=== PATIENT | female | born 1995 | race Two or more races ===

== ENCOUNTER 2024-02-26 17:54 | Inpatient (IN) | payer OTHER ==
[~2024-02-26] VITALS: Ht 152.4 cm; Wt 97.0 kg
--- NOTE | 2024-02-26 18:43 | ED.PDOC ---
GI ASSESSMENT HPI Comments 28y F who presents to the ED via EMS for chief complaint of abdominal pain. Pt states she has been having epigastric pain since the past 1 week. Pt states the pain is burning in nature, constant, radiating to the RUQ, rating the pain 6/10, with associated exacerbating factor after eating and no relieving factors. Pt has associated nausea but otherwise denies any other symptoms. Pt states she has previously been diagnosed with gallstones but states she has not been to get consult for follow up. Pt otherwise denies any other symptoms at this time. Chief Complaint: Abdominal Pain Time Seen by MD: 18:39 Reviewed Notes: Nurses Notes, Retanner Notes Allergies: Coded Allergies: NO KNOWN ALLERGIES (Unverified , 02/26/24) Information Source: Patient Mode of Arrival: EMS Brought in by: EMS Timing: Days Duration: Since onset Prehospital treatment: None Quality: Aching, Burning Vomitus: None Stool: Normal Severity: Moderate Recent: None Recent Hx of: None Pain Location: Epigastric, RUQ Modifying Factors: Food Associated sign and symptoms: Nausea, Abdominal Pain Past Medical History PAST MEDICAL HISTORY: Denies Surgical History: BTL [employer] History: Unknown Family History Family History: Unknown Social History Smoker: Non-Smoker Alcohol: Denies ETOH Use Drugs: Denies Drug Use Lives In: Home Constitutional: denies: chills, diaphoresis, fatigue, fever, malaise, sweats, weakness, others EENTM: denies: blurred vision, double vision, ear bleeding, ear discharge, ear drainage, ear pain, ear ringing, eye pain, eye redness, hearing loss, mouth pain, mouth swelling, nasal discharge, nose bleeding, nose congestion, nose pain, photophobia, tearing, throat pain, throat swelling, voice changes, others Respiratory: denies: cough, hemoptysis, orthopnea, SOB at rest, shortness of breath, SOB with excertion, stridor, wheezing, others Cardiovascular: denies: chest pain, dizzy spells, diaphoresis, Dyspnea on exertion, edema, irregular heart beat, left arm pain, lightheadedness, palpitations, PND, syncope, others Gastrointestinal: reports: abdominal pain, nausea; denies: abdomen distended, blood streaked bowels, constipated, diarrhea, dysphagia, difficulty swallowing, hematemesis, melena, poor appetite, poor fluid intake, rectal bleeding, rectal pain, vomiting, others Genitourinary: denies: abnormal vagina bleeding, burning, dyspareunia, dysuria, flank pain, frequency, hematuria, incontinence, pain, , vagina discharge, urgency, others Neurological: denies: dizziness, fainting, headache, left sided numbness, left sided weakness, numbness, paresthesia, pre-existing deficit, right sided numbness, right sided weakness, seizure, speech problems, tingling, tremors, weakness, others Musculoskeletal: denies: back pain, gout, joint pain, joint swelling, muscle pain, muscle stiffness, neck pain, others Integumetry: denies: bruises, change in color, change in hair/nails, dryness, laceration, lesions, lumps, rash, wounds, others Allergic/Immunocompromised: denies: Difficulty Healing, Frequent Infections, Hives, Itching, others Hematologic/Lymphatic: denies: anemia, blood clots, easy bleeding, easy bruising, swollen glands, others Endocrine: denies: excessive hunger, excessive sweating, excessive thirst, excessive urination, flushing, intolerance to cold, intolerance to heat, unexplained weight gain, unexplained weight loss, others Psychiatric: denies: anxiety, bipolar disorder, depression, hopeless, panic disorder, schizophrenia, sleepless, suicidal, others All Other Systems: Reviewed and Negative Physical Exam General Appearance: Moderate Distress HEENT: Normal ENT Inspection, Pharynx Normal, TMs Normal Neck: Full Range of Motion, Non-Tender, Normal, Normal Inspection Respiratory: Chest Non-Tender, Lungs Clear, No Accessory Muscle Use, No Respiratory Distress, Normal Breath Sounds Cardiovascular: No Edema, No JVD, No Murmur, No Gallop, Normal Peripheral Pulses, Regular Rate/Rhythm Breast Exam: Deferred Gastrointestinal: Epigastric, No Organomegaly, No Pulsatile Mass, Normal Bowel Sounds, Soft, Tenderness Genitalia: Deferred Pelvic: Deferred Rectal: Deferred Extremities: No calf tenderness, Normal capillary refill, Normal inspection, Normal range of motion, Non-tender, No pedal edema Musculoskeletal : Apperance: Normal Neurologic: Alert, abrasive grader helper II-XII nml as Tested, No Motor Deficits, Normal Affect, Normal Mood, No Sensory Deficits Cerebellar Function: Normal Reflexes: Normal Skin: Dry, Normal Color, Warm Lymphatic: No Adenopathy Was a procedure done? Was a procedure done?: No GI differential Dx Differential Diagnosis: Cholangitis, Cholecystitis, Constipation, Diverticular disease, Gastritis/PUD, Gastroenteritis Other Differential Diagnosis gallstones, biliary colic X-Ray, Labs, Meds, VS Vital Signs Date Time Temp Pulse Resp B/P (MAP) Pulse Ox O2 Delivery O2 Flow Rate FiO2 02/26/24 18:55 98.9 64 18 111/71 (84) 97 Lab Test 02/26/24 18:27 Range/Units White Blood Count 8.9 4.4-10.8 10^3/uL Red Blood Count 4.93 4.0-5.20 10^6/uL Hemoglobin 16.0 12.2-16.2 g/dL Hematocrit 47.3 H 36.0-46.0 % Mean Corpuscular Volume 96.0 80.0-100.0 fL Mean Corpuscular Hemoglobin 32.4 H 28.0-32.0 pg Mean Corpuscular Hemoglobin Concent 33.7 32.0-36.0 g/dL Red Cell Distribution Width 13.1 11.8-14.3 % Platelet Count 120 L 140-450 10^3/uL Mean Platelet Volume 9.4 6.9-10.8 fL Neutrophils (%) (Auto) 75.4 37.0-80.0 % Lymphocytes (%) (Auto) 18.4 10.0-50.0 % Monocytes (%) (Auto) 4.8 0.0-12.0 % Eosinophils (%) (Auto) 0.9 0.0-7.0 % Basophils (%) (Auto) 0.5 0.0-2.0 % Neutrophils # (Auto) 6.7 1.6-8.6 10 ^3/uL Lymphocytes # (Auto) 1.6 0.4-5.4 10 ^3/uL Monocytes # (Auto) 0.4 0-1.3 10 ^3/uL Eosinophils # (Auto) 0.1 0-0.8 10 ^3/uL Basophils # (Auto) 0 0-0.2 10 ^3/uL Nucleated Red Blood Cells 0.1 % Sodium Level 140 136-145 mmol/L Potassium Level 3.4 L 3.5-5.1 mmol/L Chloride Level 110 H 98-107 mmol/L Carbon Dioxide Level 22 20-31 mmol/L Anion Gap 8 5-15 Blood Urea Nitrogen 8 L 9-23 mg/dL Creatinine 0.87 0.550-1.02 mg/dL Glomerular Filtration Rate Calc 93 >90 mL/min BUN/Creatinine Ratio 9.2 L 10.0-20.0 Serum Glucose 81 74-106 mg/dL Calcium Level 9.2 8.7-10.4 mg/dL Total Bilirubin 1.9 H 0.2-1.0 mg/dL Aspartate Amino Transferase (AST) 170 H 13-40 U/L Alanine Aminotransferase (ALT) 479 H 7-40 U/L Alkaline Phosphatase 243 H 46-116 U/L Total Protein 7.4 5.7-8.2 g/dL Albumin 4.2 3.2-4.8 g/dL Lipase 1383 H 12-53 U/L The patient's CBC and chemistry panel are within normal limits The patient's liver enzymes are elevated The lipase is 1383 The patient had an ultrasound at the other facility. The results are there. The patient was being admitted with a diagnosis of gallstone pancreatitis The patient understands and agrees with the management We will continue to manage the patient's pain with morphine and Zofran Images Reviewed?: Images reviewed and evaluated by me Time of 1ST Reevaluation: 19:10 Reevaluation 1ST: Unchanged Patient Education/Counseling: Diagnosis, Treatment, Prognosis Family Education/Counseling: No Family Present Additional Information - I reviewed the following notes from patient's past medical encounters: - The following tests were ordered, and results were reviewed by me: (Labs, X- Ray, EKG): cbc, cmp, lipase, - Additional information was gathered from interviewing the following independent Historian: (Family, Other Providers, EMT): ems - I reviewed and agreed with the following test results read by other provider: (X-ray, CT, US): none - I discussed treatments and results with medical personnel and: (consultants, family): none Departure 1 Departure Time of Disposition: 20:19 Impression: Primary Impression: Intractable abdominal pain Additional Impression: Gallstone pancreatitis Disposition: 09 ADMITTED INPATIENT Admit to: [facility] Condition: Fair Critical Care Note Critical Care Time?: No Stability Stability form required: Yes Unstable for transfer: Telemetry monitoring (Telemetry monitoring required), ED Physician Assesment (Clinical assesment) Heart Score Heart Score: Heart Score Response (Comments) Value History N/A 0 EKG N/A 0 Age N/A 0 Risk Factors N/A 0 Troponin N/A 0 Total 0 I personally scribed for EDGARDO MASON MD ([email or web address]) on 02/26/24 at 18:43. Electronically submitted by Hardeep Garcia ([email or web address]). EDGARDO MASON MD Feb 26, 2024 18:43
[2024-02-26 18:49] LABS: Basophils # (auto) 0 10 ^3/uL (0-0.2); Basophils % (auto) 0.5 % (0.0-2.0); Eosinophils # (auto) 0.1 10 ^3/uL (0-0.8); Eosinophils % (auto) 0.9 % (0.0-7.0); Hematocrit 47.3 % (36.0-46.0); Lymphocytes # (auto) 1.6 10 ^3/uL (0.4-5.4); Lymphocytes % (auto) 18.4 % (10.0-50.0); Mean Corpuscular Hemoglobin 32.4 pg (28.0-32.0); Mean Corpuscular Hgb Conc. 33.7 g/dL (32.0-36.0); Monocytes # (auto) 0.4 10 ^3/uL (0-1.3); Monocytes % (auto) 4.8 % (0.0-12.0); Neutrophils # (auto) 6.7 10 ^3/uL (1.6-8.6); Neutrophils % (auto) 75.4 % (37.0-80.0); Nucleated Red Blood Cells % 0.1 %; Platelet Count (auto) 120 10^3/uL (140-450); Red Blood Cells 4.93 10^6/uL (4.0-5.20); Red Cell Distribution Width 13.1 % (11.8-14.3); White Blood Cell 8.9 10^3/uL (4.4-10.8)
[2024-02-26 19:08] LABS: Albumin 4.2 g/dL (3.2-4.8); Anion Gap 8 (5-15); BUN/Creatinine Ratio 9.2 (10.0-20.0); Calcium 9.2 mg/dL (8.7-10.4); Carbon Dioxide 22 mmol/L (20-31); Glucose 81 mg/dL (74-106); Sodium 140 mmol/L (136-145)
[2024-02-26 19:09] LABS: Total Protein 7.4 g/dL (5.7-8.2)
[2024-02-26 19:14] LABS: Alanine Aminotransferase 479 U/L (7-40); Alkaline Phosphatase 243 U/L (46-116); Aspartate Aminotransferase 170 U/L (13-40); Bilirubin, Total 1.9 mg/dL (0.2-1.0); Blood Urea Nitrogen 8 mg/dL (9-23); Chloride 110 mmol/L (98-107); Potassium 3.4 mmol/L (3.5-5.1)
[2024-02-26 19:23] LABS: Lipase 1383 U/L (12-53)
[2024-02-26] MEDS: LACTATED RINGER'S 1,000 ML IV SCH (23:30)
[2024-02-26] MEDS ORDERED: POTASSIUM CHLORIDE 40 MEQ, LIDOCAINE 1% (LOCAL ANESTH.) 4 ML in SODIUM CHL 0.9% 250 ML IV ONE (23:30)
[2024-02-26] MEDS ORDERED: ONDANSETRON HCL 4 MG/2 ML VIAL IV PRN (23:30)
--- NOTE | 2024-02-26 23:50 | DVHHPRES ---
History of Present Illness Resident Creating Document: CATINA REYNOSO RESDIENT History of Present Illness This is a 28-year-old female with past medical history of gas stone, present to the hospital with epigastric abdominal pain since 7 days. Per patient, intermitted sharp epigastric pain since 1 week which radiates to the back, worsened by taking food which last for a couple of hours and 6/10 in intensity. The patient was admitted due to same symptoms around 1 month back, on imaging found to have gallstone. Abdominal pain is associated with nausea and vomiting. Patient denies fever, chest pain, shortness of breath, and any changes in bladder and bowel habits. PMHx: Gallstone PSHx: Bilateral tubal ligation Social history: Patient lives with has been at home, denies smoking, alcohol or any other drug use Allergic history: No known Allergic Review of Systems Review of Systems General: patient denies fever, fatigue, weaknes, sweating, any recent changes in appetite and weight HEENT: No headaches, visiual changes, hearing loss, tinnitus, nasal congestion and discharge, and sore throat. Cardiovascular: Denies chest pain, palpitations, dyspnea on exertion, orthopnea, or claudication. Respiratory: No cough, and wheezing. Gastrointestinal: Reports nausea, vomiting, and abdominal pain Genitourinary: No dysuria, hematuria, discharge, frequency, urgency, nocturia, incontinence, and urinary retention. Endocrine: No heat or cold intolerance, polydipsia, polyuria, and polyphagia. Neurological: No dizziness, extremity weakness and numbness, tremors, gait disturbance, seizures, and memory impairment. Psychiatric: Denies depression, anxiety,or insomnia. Musculoskeletal: Denies neck pain, stiffness and swelling, back pain, muscle weakness, joint pain, stiffness, swelling, or limited range of motion. Skin: No rashes, itching, skin lesion, changes in hair, nail, skin texture and breast. Hematologic/Lymphatic: Denies easy bruising, bleeding tendencies, or lymph node enlargement. Allergies: Coded Allergies: NO KNOWN ALLERGIES (Unverified , 02/26/24) Medications Current Medications Medications Dose Ordered Sig/Yoni Route Start Time Stop Time Status Last Admin Dose Admin Piperacillin Sod/ Tazobactam Sod 100 ml @ 25 mls/hr Q8HR@0000,0800,1600 IV 02/27/24 00:00 Ondansetron HCl 4 mg Q4HPRN PRN IV 02/26/24 23:30 Pantoprazole Sodium 40 mg DAILY IV 02/27/24 10:00 Lactated Ringer's 1,000 ml @ 125 mls/hr Q8H IV 02/26/24 23:30 Potassium Chloride 100 ml @ 50 mls/hr Q2H IV 02/27/24 00:00 02/27/24 03:59 Exam Vital Signs Vital Signs Date Time Temp Pulse Resp B/P (MAP) Pulse Ox O2 Delivery O2 Flow Rate FiO2 02/26/24 21:09 98.9 63 16 116/68 (84) 96 98.9 02/26/24 21:07 Room Air* 0 21 Exam General Appearance: Alert, Oriented X3, Cooperative, No acute distress HEENT: Atraumatic, PERRLA, EOMI, Mucous membrane moist/pink Respiratory: Clear to auscultation, Normal air movement Cardiovascular: Regular rate, Normal S1, Normal S2, No murmurs, no chest wall tenderness Abdominal: Mild epigastric tenderness Extremities: No clubbing, No cyanosis, No edema, Normal pulses, No tenderness/swelling Skin: No rashes, No breakdown, No significant lesion Neuro: Normal gait, Normal speech, Strength at 5/5 X4 ext, Normal tone, Sensation intact, Cranial nerves 3-12 NL, Reflexes 2+ Psych/Mental Status: Mental status NL, Mood NL Labs/Xrays Labs Test 02/26/24 18:27 Range/Units White Blood Count 8.9 4.4-10.8 10^3/uL Red Blood Count 4.93 4.0-5.20 10^6/uL Hemoglobin 16.0 12.2-16.2 g/dL Hematocrit 47.3 H 36.0-46.0 % Mean Corpuscular Volume 96.0 80.0-100.0 fL Mean Corpuscular Hemoglobin 32.4 H 28.0-32.0 pg Mean Corpuscular Hemoglobin Concent 33.7 32.0-36.0 g/dL Red Cell Distribution Width 13.1 11.8-14.3 % Platelet Count 120 L 140-450 10^3/uL Mean Platelet Volume 9.4 6.9-10.8 fL Neutrophils (%) (Auto) 75.4 37.0-80.0 % Lymphocytes (%) (Auto) 18.4 10.0-50.0 % Monocytes (%) (Auto) 4.8 0.0-12.0 % Eosinophils (%) (Auto) 0.9 0.0-7.0 % Basophils (%) (Auto) 0.5 0.0-2.0 % Neutrophils # (Auto) 6.7 1.6-8.6 10 ^3/uL Lymphocytes # (Auto) 1.6 0.4-5.4 10 ^3/uL Monocytes # (Auto) 0.4 0-1.3 10 ^3/uL Eosinophils # (Auto) 0.1 0-0.8 10 ^3/uL Basophils # (Auto) 0 0-0.2 10 ^3/uL Nucleated Red Blood Cells 0.1 % Sodium Level 140 136-145 mmol/L Potassium Level 3.4 L 3.5-5.1 mmol/L Chloride Level 110 H 98-107 mmol/L Carbon Dioxide Level 22 20-31 mmol/L Anion Gap 8 5-15 Blood Urea Nitrogen 8 L 9-23 mg/dL Creatinine 0.87 0.550-1.02 mg/dL Glomerular Filtration Rate Calc 93 >90 mL/min BUN/Creatinine Ratio 9.2 L 10.0-20.0 Serum Glucose 81 74-106 mg/dL Calcium Level 9.2 8.7-10.4 mg/dL Total Bilirubin 1.9 H 0.2-1.0 mg/dL Aspartate Amino Transferase (AST) 170 H 13-40 U/L Alanine Aminotransferase (ALT) 479 H 7-40 U/L Alkaline Phosphatase 243 H 46-116 U/L Total Protein 7.4 5.7-8.2 g/dL Albumin 4.2 3.2-4.8 g/dL Lipase 1383 H 12-53 U/L Assessment/Plan Assessment/Plan Acute pancreatitis, likely due to gallstone/alcohol Cholelithiasis CT scan shows, acute pancreatitis, cholelithiasis, and mild prominence of common bile duct Ultrasound shows, mildly dilated common bile duct and cholelithiasis, but no choledocholithiasis visualized Lipase is raised at 1383 Consulted surgery NPO IV ringer lactate Zosyn Morphine for the pain Zofran p.r.n. Dyslipidemia LDL is raised at 110 Transaminitis Hypokalemia, repleted Hyperchloremia, monitoring Hypomagnesemia, repleted Thrombocytopenia, monitoring Alcohol use disorder Patient consulted for alcohol cessation for more than 17 minutes DIET: NPO DVT PROPHYLAXIS: SCDs GI PROPHYLAXIS:: Protonix CODE STATUS: Goal of care discussed for more than 18 minutes, full code DISPOSITION: Med surge Patient's status discussed with the patient. Case discussed with Dr. Lara Plan discussed with: Patient, Other (RN) My Orders Orders - CATINA REYNOSO RESDIENT Procedure Category Date Status Time Admit ADMIT 02/26/24 Transmitted 23:16 Stat Ekg For Chest JOE 02/26/24 In Process Pain 23:16 Notify Md Of Changes JOE 02/26/24 In Process From Base 23:16 Piperacillin-Tazob PHA 02/27/24 In Process 3.375gm (Zosyn 3.375g 00:00 Ondansetron Hcl PHA 02/26/24 In Process (Zofran) 23:30 Potassium Chloride PHA 02/26/24 In Process (Potassium Chloride). 23:30 Pantoprazole PHA 02/27/24 In Process (Protonix) 10:00 Lactated Ringer's PHA 02/26/24 In Process 23:30 Magnesium LAB 02/26/24 Logged 23:17 Blood Alcohol LAB 02/26/24 Logged 23:17 Lipid Panel LAB 02/26/24 Logged 23:17 LIVER US 02/26/24 Taken 23:17 Lactic Acid W/ Reflex LAB 02/26/24 Logged Order 23:17 Urinalysis LAB 02/26/24 Logged 23:17 Drug Screen LAB 02/26/24 Logged 23:17 Prothrombin Time W/ LAB 02/26/24 Logged INR 23:17 * Surgical Consult CONS 02/26/24 Transmitted 1 View Decubitus XY 02/26/24 Logged Chest Xray 23:17 Sequential JOE 02/26/24 In Process Compression Device 23:17 Full Code JOE 02/26/24 In Process 23:17 Code Status CODE 02/26/24 Transmitted 23:17 Npo Except Ice Chips ORDERS 02/26/24 Transmitted 23:31 Potassium Chl PHA 02/27/24 In Process 20meq/100ml 00:00 Ct Ab Pel Wo Con-No CT 02/26/24 Logged Oral Or Iv 23:17 Date of Service: Feb 26, 2024 Billing Provider: SHAMEKA LARA MD Common Visit Codes: [id number] INP/OBS CARE (HIGH) CATINA REYNOSO Feb 26, 2024 23:50 SHAMEKA LARA MD Feb 27, 2024 08:58
[2024-02-27] VITALS (9 sets, daily range): BP systolic 92–111; BP diastolic 53–63; PULSE 59–81; RESP 15–20; TEMP 97.5–98.7; O2SAT 96–99
[2024-02-27] MEDS: PIPERACILLIN-TAZOB 3.375GM 100 ML IV SCH
--- NOTE | 2024-02-27 00:17 | DVH ---
ABDOMINAL ULTRASOUND CLINICAL HISTORY: Pancreatitis TECHNIQUE: Multiple grayscale and color Doppler ultrasound images were obtained of the abdomen. WID: COMPARISON: None FINDINGS: Liver and Biliary System: Homogeneous echotexture, normal size measuring 13.3 cm. No focal hepatic observations. No intrahepatic bile duct dilatation. The common duct measures 0.7 cm at the sukhwinder h epatis. The gallbladder is normal caliber and contains cholelithiasis. No gallbladder wall thicken ing. Sonographic Cote's sign is negative.. Pancreas: Not well seen due to overlying bowel gas Kidneys: The right kidney is 9.1 cm . No hydronephrosis, increased echogenicity, shadowing stone, o r focal lesion. IMPRESSION: 1. Mildly dilated common bile duct. No choledocholithiasis in the visualized portions of the duct. I f there is clinical concern for biliary obstruction, MRCP could be pursued for further evaluation. 2. Cholelithiasis.
[2024-02-27 00:23] LABS: INR 1.04 (0.9-1.15)
[2024-02-27 00:24] LABS: Blood Alcohol 5.6 mg/dL (<10); Magnesium 1.9 mg/dL (1.6-2.6)
--- NOTE | 2024-02-27 00:43 | DVH ---
CHEST RADIOGRAPH Indication: Pancratitis Technique: Single frontal view of the chest was obtained COMPARISON: None FINDINGS: Lines and Tubes: None Lungs: Clear Pleura: No effusion. No pneumothorax. Cardiomediastinal contours: Unremarkable Bones: Unremarkable IMPRESSION: 1. No acute disease.
[2024-02-27] MEDS: PANTOPRAZOLE 40 MG/10 ML VIAL INJ IV ONE (00:49)
--- NOTE | 2024-02-27 00:56 | DVH ---
CLINICAL HISTORY: pancreatitis TECHNIQUE: CT of the abdomen and pelvis was performed without intravenous contrast. This exam was per formed according to our departmental dose optimization program. Up-to-date CT equipment and radiation dose reduction techniques are utilized as appropriate. CTDI: 18.75 DLP: 1089 WID: COMPARISON: None FINDINGS: Lower Thorax: Linear bibasilar scarring or atelectasis. Normal-sized heart. Liver and Biliary system: Grossly unremarkable liver. The gallbladder is normal caliber with cholelit hiasis. There is no intrahepatic bile duct dilatation mild prominence of the common bile duct measuri ng 9 mm on series 601, image 47 Spleen: Unremarkable. Adrenal Glands and Kidneys: Unremarkable. Pancreas and Retroperitoneum: Mild peripancreatic soft tissue swelling . There is no retroperitoneal lymphadenopathy. Mild fluid layers in the [id number]-[id number]-right retroperitoneum Aorta and Major Vessels: Unremarkable. Bowel, Mesentery and Peritoneal space: The small and large bowel loops are normal in caliber. Normal appendix. No free air or fluid collection. Pelvis: There is a 9.1 x 7.2 cm dermoid cyst in the right adnexa on series 2, image 75. There are bi lateral tubal ligation clips. No pelvic lymphadenopathy. Uterus is grossly unremarkable. Urinary blad felipa is mildly distended. Abdominal wall and Osseous Structures: Small fat containing umbilical hernia. No destructive osseous lesion IMPRESSION: 1. Acute pancreatitis. 2. Cholelithiasis. 3. Mild prominence of the common bile duct. If there is clinical concern for biliary obstruction, MR CP could be pursued for evaluation. 4. There is a 9.1 x 7.2 cm right ovarian dermoid cyst
[2024-02-27] MEDS: POTASSIUM CHL 20MEQ/100ML 100 ML IV SCH ×2 (01:00→17:15)
[2024-02-27 06:35] LABS: Basophils # (auto) 0 10 ^3/uL (0-0.2); Basophils % (auto) 0.4 % (0.0-2.0); Eosinophils # (auto) 0.2 10 ^3/uL (0-0.8); Eosinophils % (auto) 2.8 % (0.0-7.0); Hematocrit 40.9 % (36.0-46.0); Hemoglobin 14.1 g/dL (12.2-16.2); Lymphocytes # (auto) 2.1 10 ^3/uL (0.4-5.4); Lymphocytes % (auto) 29.4 % (10.0-50.0); Mean Corpuscular Hemoglobin 32.6 pg (28.0-32.0); Mean Corpuscular Hgb Conc. 34.4 g/dL (32.0-36.0); Mean Corpuscular Volume 94.9 fL (80.0-100.0); Monocytes # (auto) 0.6 10 ^3/uL (0-1.3); Monocytes % (auto) 7.8 % (0.0-12.0); Neutrophils # (auto) 4.3 10 ^3/uL (1.6-8.6); Neutrophils % (auto) 59.6 % (37.0-80.0); Platelet Count (auto) 101 10^3/uL (140-450); Red Blood Cells 4.31 10^6/uL (4.0-5.20); Red Cell Distribution Width 12.9 % (11.8-14.3); White Blood Cell 7.2 10^3/uL (4.4-10.8)
[2024-02-27 06:58] LABS: Albumin 3.8 g/dL (3.2-4.8); Anion Gap 12 (5-15); BUN/Creatinine Ratio 11.5 (10.0-20.0); Blood Urea Nitrogen 9 mg/dL (9-23); Calcium 8.9 mg/dL (8.7-10.4); Carbon Dioxide 20 mmol/L (20-31); Sodium 141 mmol/L (136-145); Total Protein 6.5 g/dL (5.7-8.2)
[2024-02-27 07:03] LABS: Alanine Aminotransferase 352 U/L (7-40); Alkaline Phosphatase 204 U/L (46-116); Aspartate Aminotransferase 92 U/L (13-40); Bilirubin, Total 1.6 mg/dL (0.2-1.0); Chloride 109 mmol/L (98-107); Glucose 72 mg/dL (74-106); Potassium 3.4 mmol/L (3.5-5.1)
[2024-02-27] MEDS: PANTOPRAZOLE 40 MG/10 ML VIAL INJ IV SCH (09:07)
--- NOTE | 2024-02-27 09:13 | DVH ---
[id number] MRI MRCP MRI Attending Name: BULLOCK, IMRAN Sherita COMPARISON: CT scan dated [id number], ultrasound dated 02/26/2024 INDICATION: probably choledocolithiasis TECHNIQUE: MRCP was performed without the use of intravenous contrast using a MRI imaging system. Three-dimensional MRCP was performed using maximum intensity projection reconstruction on an [facility] ent workstation under concurrent supervision. FINDINGS: Visualized lower thorax: Limited imaging of the thorax demonstrates no suspicious pleural or parenchy mal disease. Liver: Normal in morphology and signal intensity. Gallbladder: Multiple gallstones are seen in gallbladder lumen measuring from 3 mm to 14 mm. Biliary system: Mildly dilated CBD measuring 7.8 mm in caliber. No choledocholithiasis. No intrahepat ic ductal dilatation noted. Spleen: Normal in morphology and signal intensity. Pancreas: Edematous pancreas with moderate peripancreatic edema. Trace free fluid is seen adjacent t o spleen and gastric fundus. Adrenal glands: Normal in morphology and signal intensity. Kidneys: The kidneys are symmetric in size and appearance. No hydronephrosis. Urinary tract: The included ureters, as visualized, are normal in course and caliber. GI tract: The included portions of the bowel are within normal limits. Lymph nodes: No enlarged lymph nodes. Peritoneum: No ascites. Musculoskeletal: The bone marrow signal intensity is within normal limits. Other: Partially seen large complex right adnexal lesion corresponding to mature teratoma seen in the prior CT scan. IMPRESSION: 1. Acute pancreatitis with no evidence of pseudocyst formation. No pancreatic ductal dilatation. 2. The CBD is mildly dilated measuring 7.8 mm in caliber but without choledocholithiasis or distal ob structing process. 3. Cholelithiasis with no evidence of cholecystitis.
--- NOTE | 2024-02-27 11:56 | DVHINCON2 ---
Date of service: Feb 27, 2024 Family History: Patient reports no known family medical history. Allergies: Coded Allergies: NO KNOWN ALLERGIES (Unverified , 02/26/24) Current Medications Current Medications Medications (Trade) Dose Ordered Sig/Yoni Route PRN Reason Start Time Stop Time Status Last Admin Piperacillin Sod/ Tazobactam Sod 100 ml @ 25 mls/hr Q8HR@0000,0800,1600 IV 02/27/24 00:00 02/27/24 08:58 Ondansetron HCl (Zofran) 4 mg Q4HPRN PRN IV NAUSEA / VOMITING 02/26/24 23:30 Pantoprazole Sodium (Protonix) 40 mg DAILY IV 02/27/24 10:00 02/27/24 09:07 Lactated Ringer's 1,000 ml @ 125 mls/hr Q8H IV 02/26/24 23:30 02/27/24 08:58 Potassium Chloride 100 ml @ 50 mls/hr Q2H IV 02/27/24 00:00 02/27/24 03:59 DC 02/27/24 02:00 Vital Signs Vital Signs Date Time Temp Pulse Resp B/P (MAP) Pulse Ox O2 Delivery O2 Flow Rate FiO2 02/27/24 09:00 98.0 81 20 107/63 (78) 97 98.0 02/27/24 08:00 Room Air* 0 21 Labs/Diagnostic Data Labs Test 02/27/24 06:17 02/26/24 23:57 02/26/24 18:27 Range/Units White Blood Count 7.2 4.4-10.8 10^3/uL Red Blood Count 4.31 4.0-5.20 10^6/uL Hemoglobin 14.1 12.2-16.2 g/dL Hematocrit 40.9 # 36.0-46.0 % Mean Corpuscular Volume 94.9 80.0-100.0 fL Mean Corpuscular Hemoglobin 32.6 H 28.0-32.0 pg Mean Corpuscular Hemoglobin Concent 34.4 32.0-36.0 g/dL Red Cell Distribution Width 12.9 11.8-14.3 % Platelet Count 101 L 140-450 10^3/uL Mean Platelet Volume 8.9 6.9-10.8 fL Neutrophils (%) (Auto) 59.6 37.0-80.0 % Lymphocytes (%) (Auto) 29.4 10.0-50.0 % Monocytes (%) (Auto) 7.8 0.0-12.0 % Eosinophils (%) (Auto) 2.8 0.0-7.0 % Basophils (%) (Auto) 0.4 0.0-2.0 % Neutrophils # (Auto) 4.3 1.6-8.6 10 ^3/uL Lymphocytes # (Auto) 2.1 0.4-5.4 10 ^3/uL Monocytes # (Auto) 0.6 0-1.3 10 ^3/uL Eosinophils # (Auto) 0.2 0-0.8 10 ^3/uL Basophils # (Auto) 0 0-0.2 10 ^3/uL Nucleated Red Blood Cells 0.0 % Sodium Level 141 136-145 mmol/L Potassium Level 3.4 L 3.5-5.1 mmol/L Chloride Level 109 H 98-107 mmol/L Carbon Dioxide Level 20 20-31 mmol/L Anion Gap 12 5-15 Blood Urea Nitrogen 9 9-23 mg/dL Creatinine 0.78 0.550-1.02 mg/dL Glomerular Filtration Rate Calc 106 >90 mL/min BUN/Creatinine Ratio 11.5 10.0-20.0 Serum Glucose 72 L 74-106 mg/dL Calcium Level 8.9 8.7-10.4 mg/dL Total Bilirubin 1.6 H 0.2-1.0 mg/dL Aspartate Amino Transferase (AST) 92 H 13-40 U/L Alanine Aminotransferase (ALT) 352 H 7-40 U/L Alkaline Phosphatase 204 H 46-116 U/L Total Protein 6.5 5.7-8.2 g/dL Albumin 3.8 3.2-4.8 g/dL Prothrombin Time 11.0 9.3-11.8 sec Prothrombin Time INR 1.04 0.9-1.15 Lactic Acid Level 1.0 0.4-2.0 mmol/L Magnesium Level 1.9 1.6-2.6 mg/dL Triglycerides Level 94 < 150 mg/dL Cholesterol Level 162 < 200 mg/dL LDL Cholesterol 110 H < 100 mg/dL HDL Cholesterol 41 40-59 mg/dL Plasma/Serum Blood Alcohol 5.6 <10 mg/dL Lipase 1383 H 12-53 U/L Assessment PATIENT HAS GALLSTONE PANCREATITIS, MRCP SHOWS NO EVIDENCE OF CHOLEDOCHOLITHIASIS,. ABDOMEN TENDER IN MED EPIGASTRIUM, SHE NEEDS TO REMAIN NPO TILL DEFERVESCENCE OF HER PANCREATITIS CONFIRMED BY NORMALIZATION OF AMYLASE AND LIPASE, THEN SHE CAN RESUME PO INTAKE, BE DISCHARGED AND RETURN TOP SEE ME IN THE OFFICE IN ABOUT TWO TO THREE WEEKS,AT THAT TIME WILL REPEAT CT SCAN AND IF NO FURTHER PANCREATIIC INFLAMMATION WILL SCHEDULE CHOLECYSTECTOMY ALL THIS WAS EXPLAINED TO PATIENT AND HER AT BEDSIDE Plan discussed with: Patient, Spouse EJ ACEVEDO MD Feb 27, 2024 11:56
--- NOTE | 2024-02-27 12:30 | DVHINCON2 ---
Date of service: Feb 27, 2024 Reason for Consultation Ovarian neoplasm (Teratoma) History of Present Illness HPI 28-year-old female two para one SAB one last menstrual period sometime in 01/2024 (unsure). Patient was admitted with acute abdominal pain, nausea or vomiting. No fever or diarrhea. Found to have acute gallstone pancreatitis without choledocholithiasis. CT scan shows an incidental right ovarian neoplasm 9 x 7 cm suggestive of a teratoma (dermoid cyst). Of note, the patient had bilateral tubal ligation approximately seven months ago and was informed at that time that she had a large ovarian cyst in her right ovary. The patient has been asymptomatic from this "cyst". She denies any pain any abnormal periods, and no pain with intercourse. There is no family history of ovarian cancer. Past Medical History Cardiac: No pertinent Hx Pulmonary: No pertinent Hx Central Nervous System: No pertinent Hx GI: Other (Gallstones, pancreatitis) Hemotology/Oncology: No pertinent Hx Hepatobiliary: No pertinent Hx Psychiatric: No pertinent Hx Musculoskeletal: No pertinent Hx Rheumotologic: No pertinent Hx Infectious Disease: No peritnent Hx ENT: No pertinent Hx Renal/: No pertinent Hx Endocrine: No pertinent Hx Dermatology: No pertinent Hx Past Surgical History: Tubal ligation Family History: No pertinent Hx Patient Family History: Patient reports no known family medical history. Smoker: No Hx (Negative) Alocohol: None Drugs: None Lives with: Alone Domestic Violence: Neg Review of Systems Constitutional: No symptom reported Ears, Nose, & Throat: No symptom reported Eyes: No symptom reported Pulmonary/Respiratory: No symptom reported Cardiovascular: No symptom reported Gastrointestinal: Nausea, Vomiting, Abdominal Pain Genitourinary: No symptom reported Musculoskeletal: No symptom reported Skin: No symptom reported Psychiatric: No symptom reported Endocrine: No symptom reported Hemotologic/Lymphatic: No symptom reported H&P Exam Vital Signs Vital Signs Date Time Temp Pulse Resp B/P (MAP) Pulse Ox O2 Delivery O2 Flow Rate FiO2 02/27/24 09:00 98.0 81 20 107/63 (78) 97 98.0 02/27/24 08:00 Room Air* 0 21 General Appeara: Well developed, Normal Appearance, Obese Head Exam: Normal inspection Eye Exam: bilateral eye PERRL Abdominal Exam: Normal bowel sounds, Soft, No hepatospenomegaly, No masses, Other (Tender in epigastrium) Rectal Exam: Deferred Pelvic Exam: Not done Labs/Xrays Labs Test 02/27/24 06:17 02/26/24 23:57 Range/Units White Blood Count 7.2 4.4-10.8 10^3/uL Red Blood Count 4.31 4.0-5.20 10^6/uL Hemoglobin 14.1 12.2-16.2 g/dL Hematocrit 40.9 # 36.0-46.0 % Mean Corpuscular Volume 94.9 80.0-100.0 fL Mean Corpuscular Hemoglobin 32.6 H 28.0-32.0 pg Mean Corpuscular Hemoglobin Concent 34.4 32.0-36.0 g/dL Red Cell Distribution Width 12.9 11.8-14.3 % Platelet Count 101 L 140-450 10^3/uL Mean Platelet Volume 8.9 6.9-10.8 fL Neutrophils (%) (Auto) 59.6 37.0-80.0 % Lymphocytes (%) (Auto) 29.4 10.0-50.0 % Monocytes (%) (Auto) 7.8 0.0-12.0 % Eosinophils (%) (Auto) 2.8 0.0-7.0 % Basophils (%) (Auto) 0.4 0.0-2.0 % Neutrophils # (Auto) 4.3 1.6-8.6 10 ^3/uL Lymphocytes # (Auto) 2.1 0.4-5.4 10 ^3/uL Monocytes # (Auto) 0.6 0-1.3 10 ^3/uL Eosinophils # (Auto) 0.2 0-0.8 10 ^3/uL Basophils # (Auto) 0 0-0.2 10 ^3/uL Nucleated Red Blood Cells 0.0 % Sodium Level 141 136-145 mmol/L Potassium Level 3.4 L 3.5-5.1 mmol/L Chloride Level 109 H 98-107 mmol/L Carbon Dioxide Level 20 20-31 mmol/L Anion Gap 12 5-15 Blood Urea Nitrogen 9 9-23 mg/dL Creatinine 0.78 0.550-1.02 mg/dL Glomerular Filtration Rate Calc 106 >90 mL/min BUN/Creatinine Ratio 11.5 10.0-20.0 Serum Glucose 72 L 74-106 mg/dL Calcium Level 8.9 8.7-10.4 mg/dL Total Bilirubin 1.6 H 0.2-1.0 mg/dL Aspartate Amino Transferase (AST) 92 H 13-40 U/L Alanine Aminotransferase (ALT) 352 H 7-40 U/L Alkaline Phosphatase 204 H 46-116 U/L Total Protein 6.5 5.7-8.2 g/dL Albumin 3.8 3.2-4.8 g/dL Prothrombin Time 11.0 9.3-11.8 sec Prothrombin Time INR 1.04 0.9-1.15 Lactic Acid Level 1.0 0.4-2.0 mmol/L Magnesium Level 1.9 1.6-2.6 mg/dL Triglycerides Level 94 < 150 mg/dL Cholesterol Level 162 < 200 mg/dL LDL Cholesterol 110 H < 100 mg/dL HDL Cholesterol 41 40-59 mg/dL Plasma/Serum Blood Alcohol 5.6 <10 mg/dL Assessment/Plan Admitting Diagnosis: 1. Acute gallstone pancreatitis 2. Inicidental Rt Ovarian neoplasm 9x7 cm, likey teratoma (dermoid) Plan Per general surgeon consultation, patient will be managed conservatively until pancreatitis resolves. She will then be scheduled for outpatient cholecystectomy. I have informed the patient that I also would like to follow up with her outpatient to schedule a laparoscopic right ovarian cystectomy versus right salpingo-oophorectomy. There are no acute land surveyor manager intervention indicated at this time. Thank you for allowing me to participate in the care this patient, land surveyor manager will sign off Plan discussed with: Patient Date of Service: Feb 27, 2024 Billing Provider: YADI MARIA DO Common Visit Codes: CONSULT ONLY Consultation Codes: [id number] CONSULT <45MIN YADI MARIA DO Feb 27, 2024 12:30
--- NOTE | 2024-02-27 15:08 | DVHPNRES ---
Progress Note Date Seen: Feb 27, 2024 Resident Creating Document: ROBIN HAHN RESIDENT Has the PT tested + for MRSA If YES, has PT been informed?: No Medical Necessity Reason Pt with a Central, PICC or Fol: No Subjective Review of Systems A 28-year-old female with past medical history of cholelithiasis, present to the hospital with epigastric abdominal pain since 7 days. Per patient, intermitted sharp epigastric pain since 1 week which radiates to the back, worsened by taking food which last for a couple of hours and 6/10 in intensity. The patient was admitted due to same symptoms around 1 month back, on imaging found to have gallstone. Abdominal pain is associated with nausea and vomiting. Patient denies fever, chest pain, shortness of breath, and any changes in bladder and bowel habits. PMHx: Gallstone PSHx: Bilateral tubal ligation Social history: Patient lives with has been at home, denies smoking, alcohol or any other drug use Allergic history: No known Allergic Objective vital signs Vital Sign Date Time Temp Pulse Resp B/P (MAP) Pulse Ox O2 Delivery O2 Flow Rate FiO2 02/27/24 09:00 98.0 81 20 107/63 (78) 97 98.0 02/27/24 08:00 Room Air* 0 21 Total Intake and Output 02/26/24 02/26/24 02/27/24 15:00 23:00 07:00 Intake Total 350 ml Output Total 0 ml Balance 350 ml medications Current Medications Medications Dose Ordered Sig/Yoni Route Start Time Stop Time Status Last Admin Dose Admin Piperacillin Sod/ Tazobactam Sod 100 ml @ 25 mls/hr Q8HR@0000,0800,1600 IV 02/27/24 00:00 02/27/24 08:58 25 MLS/HR Ondansetron HCl 4 mg Q4HPRN PRN IV 02/26/24 23:30 Pantoprazole Sodium 40 mg DAILY IV 02/27/24 10:00 02/27/24 09:07 40 MG Lactated Ringer's 1,000 ml @ 125 mls/hr Q8H IV 02/26/24 23:30 02/27/24 14:36 125 MLS/HR Examination General Appearance: Alert, Oriented X3, Cooperative, No acute distress HEENT: Atraumatic, PERRLA, EOMI, Mucous membrane moist/pink Respiratory: Clear to auscultation, Normal air movement Cardiovascular: Regular rate, Normal S1, Normal S2, No murmurs, no chest wall tenderness Abdominal: Mild epigastric tenderness Extremities: No clubbing, No cyanosis, No edema, Normal pulses, No tenderness/swelling Skin: No rashes, No breakdown, No significant lesion Neuro: Normal gait, Normal speech, Strength at 5/5 X4 ext, Normal tone, Sensation intact, Cranial nerves 3-12 NL, Reflexes 2+ Psych/Mental Status: Mental status NL, Mood NL laboratory and microbiology Laboratory Tests 02/27/24 06:17 Test 02/27/24 06:17 Range/Units Serum Glucose 72 L 74-106 mg/dL Problem List/Assessment/Plan Problem List/Assessment/Plan Acute pancreatitis, likely due to gallstone/alcohol Cholelithiasis CT scan shows, acute pancreatitis, cholelithiasis, and mild prominence of common bile duct Ultrasound shows, mildly dilated common bile duct and cholelithiasis, but no choledocholithiasis visualized MRCP negative to choledocholithiasis Lipase is raised at 1383 Consulted surgery: no need of emergent surgery, elective cholecystectomy Clear liquid diet: advance diet IV ringer lactate Zosyn Morphine for the pain Zofran p.r.n. Dyslipidemia LDL is raised at 110 Transaminitis Hypokalemia, repleted Hyperchloremia, monitoring Hypomagnesemia, repleted Thrombocytopenia, monitoring Alcohol use disorder Patient consulted for alcohol cessation for more than 17 minutes Ovarian cyst Per Dr Chandni sears outpatient DIET: NPO DVT PROPHYLAXIS: SCDs GI PROPHYLAXIS:: Protonix CODE STATUS: Goal of care discussed for more than 18 minutes, full code DISPOSITION: Med surge Patient's status discussed with the patient. Case discussed with Dr. Morales Plan discussed with: Patient, Other (rn) My Orders My Orders Orders - ROBIN HAHN Procedure Category Date Status Time Mrcp Mri MRI 02/27/24 Resulted 07:18 * Gi Dvh Wheel Borer CONS 02/27/24 Transmitted 07:18 Acute Hepatitis Panel LAB 02/27/24 In Process 07:18 Date of Service: Feb 27, 2024 Billing Provider: CRISTIAN MORALES MD Common Visit Codes: [id number] INP/OBS CARE(HIGH) ROBIN HAHN RESIDENT Feb 27, 2024 15:08 CRISTIAN MORALES MD Feb 27, 2024 15:37
[2024-02-27] MEDS ORDERED: ACETAMINOPHEN 325 MG TAB PO PRN (15:15)
--- NOTE | 2024-02-27 15:39 | DVHCONRES ---
Date Seen: Feb 27, 2024 Resident Creating Document: GARDENIA HOLLOWAY RESIDENT Referring Physician Reason for Consultation Acute pancreatitis History of Present Illness 28-year-old female patient with past medical history of type 2 obesity, gallstones who presented to the emergency department with a chief complaint of sudden onset of severe epigastric pain that began 7 days ago. Per patient the pain was described as sharp epigastric pain since 1 week ago which radiates to the back worsened by taking food, particularly fatty food, which last for a couple of hours and then resolves. 6/10 intensity. Patient reports having similar episodes in the past) 1 month ago) ultrasound showed gallstones. Patient was examined at bedside, she reports feeling better and previous s ymptoms) abdominal pain nausea and vomiting, loss of appetite ) resolved. Patient denies fever, chills or recent illness. There is no prior history of pancreatitis or significant alcohol consumption. The patient recalls occasional episodes of biliary colic in the past but did not seek medical attention. On physical examination the abdomen is soft with mild epigastric tenderness but no guarding, no rebound. Cote sign is negative. There is no jaundice or palpable masses. Laboratory findings include elevated lipase 1383 that went down until 395 (today) we will continue monitoring lipase tomorrow in the morning., white blood cell count remained within normal limits. Mildly elevated AST and ALT suggesting possible biliary obstruction, imaging with ultrasound showed mildly dilated common bile duct, no choledocholithiasis in the visualized portion of the duct. MRCP showed acute pancreatitis with no evidence of pseudocyst formation, no pancreatic ductal dilatation. The CBD is mildly dilated measuring 7.8 mm) less than 10) in caliber wet without choledocholithiasis or distal obstructing process. Cholelithiasis without evidence of cholecystitis. Patient has a scheduled appointment on [facility], patient was recommended to follow up with GI in the outpatient setting. Surgical intervention will be done in the outpatient per MD surgeon at [facility]. Past Medical History Gallstones. Morbid obesity Family History: Patient reports no known family medical history. Allergies: Coded Allergies: NO KNOWN ALLERGIES (Unverified , 02/26/24) Current Medications Current Medications Medications (Trade) Dose Ordered Sig/Yoni Route PRN Reason Start Time Stop Time Status Last Admin Piperacillin Sod/ Tazobactam Sod 100 ml @ 25 mls/hr Q8HR@0000,0800,1600 IV 02/27/24 00:00 02/27/24 08:58 Ondansetron HCl (Zofran) 4 mg Q4HPRN PRN IV NAUSEA / VOMITING 02/26/24 23:30 Pantoprazole Sodium (Protonix) 40 mg DAILY IV 02/27/24 10:00 02/27/24 09:07 Lactated Ringer's 1,000 ml @ 125 mls/hr Q8H IV 02/26/24 23:30 02/27/24 14:36 Potassium Chloride 100 ml @ 50 mls/hr Q2H IV 02/27/24 00:00 02/27/24 03:59 DC 02/27/24 02:00 Review of Systems Constitutional: No: Fever, Chills, Sweats, Weakness, Malaise, Other Eyes: No: Pain, Vision change, Conjunctivae inflammation, Eyelid inflammation, Other, Redness ENT: No: Ear pain, Ear discharge, Nose pain, Nose discharge, Nose congestion, Mouth pain, Mouth swelling, Throat pain, Throat swelling, Other Respiratory: No Wheezing, Hemoptysis, Pleuritic Pain, Sputum, Wheezing, Other Cardiovascular: No: Chest Pain, Palpitations, Orthopnea, Paroxysmal Noc. Dyspnea, Edema, Lt Headedness, Other Gastrointestinal: No: Nausea, Vomiting, Abdominal Pain, Diarrhea, Constipation, Melena, Hematochezia, Other Musculoskeletal: No: other, neck pain, shoulder pain, arm pain, back pain, hand pain, leg pain, foot pain Neurological:; No: Weakness, Numbness, Incoordination, Change in speech, Confusion, Seizures Vital Signs Vital Signs Date Time Temp Pulse Resp B/P (MAP) Pulse Ox O2 Delivery O2 Flow Rate FiO2 02/27/24 09:00 98.0 81 20 107/63 (78) 97 98.0 02/27/24 08:00 Room Air* 0 21 Physical Exam Examination General Appearance: Alert, Oriented X3, Cooperative, No acute distress Respiratory: Clear to auscultation, Normal air movement Cardiovascular: Regular rate, Normal S1, Normal S2 Abdominal: Normal bowel sounds Extremities: No cyanosis, No edema, Normal pulses, No tenderness/swelling Skin: No rashes, No breakdown Neuro: Normal gait, Normal speech, Strength at 5/5 X4 ext, Normal tone, Sensation intact, Cranial nerves 3-12 NL, Reflexes 2+ Psych/Mental Status: Mental status NL, Mood NL Labs/Diagnostic Data Labs Test 02/27/24 06:17 02/26/24 23:57 Range/Units White Blood Count 7.2 4.4-10.8 10^3/uL Red Blood Count 4.31 4.0-5.20 10^6/uL Hemoglobin 14.1 12.2-16.2 g/dL Hematocrit 40.9 # 36.0-46.0 % Mean Corpuscular Volume 94.9 80.0-100.0 fL Mean Corpuscular Hemoglobin 32.6 H 28.0-32.0 pg Mean Corpuscular Hemoglobin Concent 34.4 32.0-36.0 g/dL Red Cell Distribution Width 12.9 11.8-14.3 % Platelet Count 101 L 140-450 10^3/uL Mean Platelet Volume 8.9 6.9-10.8 fL Neutrophils (%) (Auto) 59.6 37.0-80.0 % Lymphocytes (%) (Auto) 29.4 10.0-50.0 % Monocytes (%) (Auto) 7.8 0.0-12.0 % Eosinophils (%) (Auto) 2.8 0.0-7.0 % Basophils (%) (Auto) 0.4 0.0-2.0 % Neutrophils # (Auto) 4.3 1.6-8.6 10 ^3/uL Lymphocytes # (Auto) 2.1 0.4-5.4 10 ^3/uL Monocytes # (Auto) 0.6 0-1.3 10 ^3/uL Eosinophils # (Auto) 0.2 0-0.8 10 ^3/uL Basophils # (Auto) 0 0-0.2 10 ^3/uL Nucleated Red Blood Cells 0.0 % Sodium Level 141 136-145 mmol/L Potassium Level 3.4 L 3.5-5.1 mmol/L Chloride Level 109 H 98-107 mmol/L Carbon Dioxide Level 20 20-31 mmol/L Anion Gap 12 5-15 Blood Urea Nitrogen 9 9-23 mg/dL Creatinine 0.78 0.550-1.02 mg/dL Glomerular Filtration Rate Calc 106 >90 mL/min BUN/Creatinine Ratio 11.5 10.0-20.0 Serum Glucose 72 L 74-106 mg/dL Calcium Level 8.9 8.7-10.4 mg/dL Total Bilirubin 1.6 H 0.2-1.0 mg/dL Aspartate Amino Transferase (AST) 92 H 13-40 U/L Alanine Aminotransferase (ALT) 352 H 7-40 U/L Alkaline Phosphatase 204 H 46-116 U/L Total Protein 6.5 5.7-8.2 g/dL Albumin 3.8 3.2-4.8 g/dL Lipase 395 H 12-53 U/L Prothrombin Time 11.0 9.3-11.8 sec Prothrombin Time INR 1.04 0.9-1.15 Lactic Acid Level 1.0 0.4-2.0 mmol/L Magnesium Level 1.9 1.6-2.6 mg/dL Triglycerides Level 94 < 150 mg/dL Cholesterol Level 162 < 200 mg/dL LDL Cholesterol 110 H < 100 mg/dL HDL Cholesterol 41 40-59 mg/dL Plasma/Serum Blood Alcohol 5.6 <10 mg/dL Assessment Acute pancreatitis, likely due to gallstone pancreatitis Cholelithiasis without acute cholecystitis Mild Thrombocytopenia likely due to hemoconcentration Transaminases due to gallstone pancreatitis Plan/Recommendation -patient admitted to [facility] -clear liquid diet -transition to low-fat diet when symptoms improve. -continue IV fluids, monitor for sign of fluid overload , urine output and hematocrit. -pain protocol -laparoscopic cholecystectomy will be performed in the outpatient. -current lipase levels in 300s from 1300 -monitor lipase level tomorrow in the morning -monitor electrolytes. -transaminases downtrending, continue monitoring -CMP tomorrow morning -follow up with surgeon . -follow up with GI Dr. Corley within 2-4 weeks Plan discussed with: Patient, Spouse MAGED MarcusGARDENIA RESIDENT Feb 27, 2024 15:39
[2024-02-28 01:04] VITALS: BP 114/63; PULSE 83; RESP 18; TEMP 98.7; O2SAT 96
[2024-02-28 05:00] VITALS: BP 96/61; PULSE 78; RESP 20; TEMP 98.2; O2SAT 96
[2024-02-28 05:35] LABS: Albumin 3.5 g/dL (3.2-4.8); Anion Gap 5 (5-15); BUN/Creatinine Ratio 10.8 (10.0-20.0); Calcium 8.8 mg/dL (8.7-10.4); Carbon Dioxide 24 mmol/L (20-31); Glucose 93 mg/dL (74-106); Potassium 3.8 mmol/L (3.5-5.1); Sodium 137 mmol/L (136-145); Total Protein 6.1 g/dL (5.7-8.2)
[2024-02-28 05:41] LABS: Alanine Aminotransferase 244 U/L (7-40); Alkaline Phosphatase 169 U/L (46-116); Blood Urea Nitrogen 8 mg/dL (9-23); Chloride 108 mmol/L (98-107); Lipase 125 U/L (12-53)
[2024-02-28 06:55] LABS: Aspartate Aminotransferase 45 U/L (13-40)
[2024-02-28 08:00] VITALS: RESP 18; O2SAT 98
[2024-02-28 09:00] VITALS: BP_SYST 107; BP_SYST 99; BP_DIAS 49; BP_DIAS 61; PULSE 53; PULSE 84; RESP 18; RESP 20; TEMP 97.8; TEMP 98.2; O2SAT 99
[2024-02-28 13:00] VITALS: BP 110/62; PULSE 69; RESP 20; TEMP 98.4; O2SAT 97
--- NOTE | 2024-02-28 15:42 | DVHPN2 ---
Progress Note - Dictate Date Seen: Feb 28, 2024 Has the PT tested + for MRSA If YES, has PT been informed?: No Medical Necessity Reason Pt with a Central, PICC or Fol: No Subjective No new complaints Tolerating clear liquid diet Patient wants to go home Her give her some soft food which she was able to tolerate Patient's lipase is down to 125 and liver enzymes are trending down vital signs Vital Sign Date Time Temp Pulse Resp B/P (MAP) Pulse Ox O2 Delivery O2 Flow Rate FiO2 02/28/24 13:00 98.4 69 20 110/62 (78) 97 98.4 02/27/24 20:00 Room Air* 0 21 Total Intake and Output 02/27/24 02/27/24 02/28/24 15:00 23:00 07:00 Intake Total 540 ml 700 ml 180 ml Output Total 0 ml Balance 540 ml 700 ml 180 ml medications Current Medications Medications Dose Ordered Sig/Yoni Route Start Time Stop Time Status Last Admin Dose Admin Piperacillin Sod/ Tazobactam Sod 100 ml @ 25 mls/hr Q8HR@0000,0800,1600 IV 02/27/24 00:00 02/28/24 15:06 25 MLS/HR Ondansetron HCl 4 mg Q4HPRN PRN IV 02/26/24 23:30 Pantoprazole Sodium 40 mg DAILY IV 02/27/24 10:00 02/28/24 09:23 40 MG Lactated Ringer's 1,000 ml @ 125 mls/hr Q8H IV 02/26/24 23:30 02/27/24 23:30 125 MLS/HR Acetaminophen 325 mg Q4HP PRN PO 02/27/24 15:15 objective General Appearance: Alert, Oriented X3, Cooperative, No acute distress Respiratory: Clear to auscultation, Normal air movement Cardiovascular: Regular rate, Normal S1, Normal S2 Abdominal: Normal bowel sounds Extremities: No cyanosis, No edema, Normal pulses, No tenderness/swelling Skin: No rashes, No breakdown Neuro: Normal gait, Normal speech, Strength at 5/5 X4 ext, Normal tone, Sensation intact, Cranial nerves 3-12 NL, Reflexes 2+ Psych/Mental Status: Mental status NL, Mood NL laboratory and microbiology Laboratory Tests 02/28/24 04:37 02/27/24 06:17 Test 02/28/24 04:37 Range/Units Serum Glucose 93 74-106 mg/dL Problems(with codes): (1) Elevated liver enzymes (2) Intractable abdominal pain (3) Gallstone pancreatitis Prognosis Plan Advance to full liquid diet Patient is cleared for discharge from GI point of view She can maintain herself on a full liquid to a soft diet for another 24-48 hours She has already scheduled appointment with her surgeon in [place] as an outpatient in 1-2 weeks Patient was advised to keep that appointment and arrange outpatient elective cholecystectomy Once again thank you for allowing me to participate in the care of this patient Plan discussed with: Patient, Other (Nurse Ceci) TRES MILLS MD Feb 28, 2024 15:42
--- NOTE | 2024-02-28 15:54 | DVHDS2 ---
Discharge Summary Date of Admission Feb 26, 2024 at 23:16 Date of Discharge: Feb 28, 2024 Labs/Diagnostic Data: Laboratory Results Test 02/28/24 04:37 02/27/24 16:55 02/27/24 06:17 02/26/24 23:57 Sodium Level 137 mmol/L (136-145) Potassium Level 3.8 mmol/L (3.5-5.1) Chloride Level 108 mmol/L (98-107) Carbon Dioxide Level 24 mmol/L (20-31) Anion Gap 5 (5-15) Blood Urea Nitrogen 8 mg/dL (9-23) Creatinine 0.74 mg/dL (0.550-1.02) Glomerular Filtration Rate Calc 113 mL/min (>90) BUN/Creatinine Ratio 10.8 (10.0-20.0) Serum Glucose 93 mg/dL (74-106) Calcium Level 8.8 mg/dL (8.7-10.4) Total Bilirubin 1.0 mg/dL (0.2-1.0) Aspartate Amino Transferase (AST) 45 U/L (13-40) Alanine Aminotransferase (ALT) 244 U/L (7-40) Alkaline Phosphatase 169 U/L (46-116) Total Protein 6.1 g/dL (5.7-8.2) Albumin 3.5 g/dL (3.2-4.8) Lipase 125 U/L (12-53) CA 125 Antigen 9.5 U/mL (0.0-38.1) White Blood Count 7.2 10^3/uL (4.4-10.8) Red Blood Count 4.31 10^6/uL (4.0-5.20) Hemoglobin 14.1 g/dL (12.2-16.2) Hematocrit 40.9 % (36.0-46.0) Mean Corpuscular Volume 94.9 fL (80.0-100.0) Mean Corpuscular Hemoglobin 32.6 pg (28.0-32.0) Mean Corpuscular Hemoglobin Concent 34.4 g/dL (32.0-36.0) Red Cell Distribution Width 12.9 % (11.8-14.3) Platelet Count 101 10^3/uL (140-450) Mean Platelet Volume 8.9 fL (6.9-10.8) Neutrophils (%) (Auto) 59.6 % (37.0-80.0) Lymphocytes (%) (Auto) 29.4 % (10.0-50.0) Monocytes (%) (Auto) 7.8 % (0.0-12.0) Eosinophils (%) (Auto) 2.8 % (0.0-7.0) Basophils (%) (Auto) 0.4 % (0.0-2.0) Neutrophils # (Auto) 4.3 10 ^3/uL (1.6-8.6) Lymphocytes # (Auto) 2.1 10 ^3/uL (0.4-5.4) Monocytes # (Auto) 0.6 10 ^3/uL (0-1.3) Eosinophils # (Auto) 0.2 10 ^3/uL (0-0.8) Basophils # (Auto) 0 10 ^3/uL (0-0.2) Nucleated Red Blood Cells 0.0 % Prothrombin Time 11.0 sec (9.3-11.8) Prothrombin Time INR 1.04 (0.9-1.15) Lactic Acid Level 1.0 mmol/L (0.4-2.0) Magnesium Level 1.9 mg/dL (1.6-2.6) Triglycerides Level 94 mg/dL (< 150) Cholesterol Level 162 mg/dL (< 200) LDL Cholesterol 110 mg/dL (< 100) HDL Cholesterol 41 mg/dL (40-59) Plasma/Serum Blood Alcohol 5.6 mg/dL (<10) Other Laboratory Tests 02/28/24 04:37 02/27/24 06:17 Brief Hx & Hospital Course: This is a 28-year-old female with past medical history of gas stone, present to the hospital with epigastric abdominal pain since 7 days. Per patient, intermitted sharp epigastric pain since 1 week which radiates to the back, worsened by taking food which last for a couple of hours and 6/10 in intensity. The patient was admitted due to same symptoms around 1 month back, on imaging found to have gallstone. Abdominal pain is associated with nausea and vomiting. Patient denies fever, chest pain, shortness of breath, and any changes in bladder and bowel habits. Acute pancreatitis, likely due to gallstone/alcohol Cholelithiasis Dyslipidemia Transaminitis Hypokalemia, repleted Hyperchloremia, monitoring Hypomagnesemia, repleted Thrombocytopenia, monitoring Alcohol use disorder Patient consulted for alcohol cessation for more than 17 minutes Ovarian cyst Per Dr Chandni sears outpatient cleared by Dr Jenny Corley for discharge Condition at Discharge: Good Final Diagnosis/Problems List see above Discharge Disposition: Home Discharge Statement: "Patient was advised to return to the ER or call 911 if any headaches, dizziness, shortness of breath, chest pain, abdominal pain, bleeding, fevers, or worsening of medical condition. Patient was counseled about treatment plan, medications, possible side effects, patientverbalized understanding. All questions were answered to the best of my ability. This discharge took greater then 30 minutes in planning, reviewing documentation, counseling the patient, and discussing with other team members." ASSESSMENT ASSESSMENT Assessment Date of Service: Feb 28, 2024 Billing Provider: EDENILSON MONTENEGRO DO Common Visit Codes: [id number] DISCH DAY >30min EDENILSON MONTENEGRO DO Feb 28, 2024 15:54
[2024-03-01 10:07] LABS: Hepatitis A Ab IgM Negative; Hepatitis B Core IgM Negative (Negative); Hepatitis B Surface Antigen Negative (Negative); Hepatitis C Antibody Negative (Negative)
== END 2024-02-28 16:16 | disposition home or self-care (01) | DRG 439 ==
LOC: EDBD 17:54 → ER 18:00 → OVERFLOW 23:16 → EAST 02-27 03:04
PROVIDERS: ADMIT Student in an Organized Health Care Education/Training Program; ATTEND Emergency Medicine
DX: K85.10 Biliary acute pancreatitis without necrosis or infection (principal); Z68.41 Body mass index [BMI] 40.0-44.9, adult; K80.20 Calculus of gallbladder without cholecystitis without obstruction; E78.5 Hyperlipidemia, unspecified; R74.01 Elevation of levels of liver transaminase levels; E87.6 Hypokalemia; E87.8 Other disorders of electrolyte and fluid balance, not elsewhere classified; E83.42 Hypomagnesemia; D69.6 Thrombocytopenia, unspecified; F10.10 Alcohol abuse, uncomplicated; Y90.9 Presence of alcohol in blood, level not specified; E66.01 Morbid (severe) obesity due to excess calories
CPT/HCPCS: 36415; 71045; 74176; 74181; 76705; 80053; 80061; 80074; 80320; 83605; 83690; 83735; 85025; 85610; 86304; G0378; J2470; J2543; J3480